=== PATIENT | female | born 1965 | race Caucasian/White ===

== ENCOUNTER 2016-06-15 18:35 | Emergency (ER) | payer OTHER ==
[~2016-06-15] VITALS: Ht 167.6 cm; Wt 71.1 kg
[~2016-06-15 18:35] MED LIST: FLEXERIL10 MG PO; MOTRIN800 MG PO
[2016-06-15 20:08] LABS: HEMATOCRIT 41.6 % (36.0-46.0); MCH 30.8 PG (29.0-34.0); MCHC 34.9 G/DL (30.0-36.0); MCV 88.3 FL (83-99); MEAN PLAT.VOLUME 9.7 uM^3 (9.5-12.4); PLATELET COUNT 291 K/uL (156-360); RBC DIS.WIDTH-CV 13.8 % (11.8-14.6); RBC DIS.WIDTH-SD 44.4 % (39-53); RED BLOOD COUNT 4.71 M/uL (3.80-5.20); WHITE BLOOD COUNT 10.8 K/uL (4.1-10.2)
[2016-06-15 20:21] LABS: CHLORIDE 106 mEq/L (99-109); POTASSIUM 4.3 mEq/L (3.7-5.4); SODIUM 140 mEq/L (136-147)
[2016-06-15 20:22] LABS: GLUCOSE 103 mg/dL (70-99)
[2016-06-15 20:24] LABS: ANION GAP 8 MEQ/L (2-14)
[2016-06-15 20:26] LABS: GFR ESTIMATE (CALCULATED) > 59 mL/min/
[2016-06-15 20:27] LABS: UREA NITROGEN (BUN) 7 mg/dL (9-23)
[2016-06-15 20:29] LABS: TROP-I INTERPRETATION NEGATIVE; TROPONIN-I < 0.01 ng/mL (0.0-0.30)
[2016-06-15] MEDS ORDERED: ATARAX,VISTARIL50 MG PO (20:34)
[2016-06-15] MEDS ORDERED: AUGMENTIN875 MG PO (20:34)
[2016-06-15] MEDS ORDERED: AFRIN,GENASAL D15 ML BOTH NARES (20:34)
[2016-06-15 21:08] VITALS: BP 162/93
== END 2016-06-15 21:10 | disposition home or self-care (01) ==
LOC: RME 18:35 → EME 18:35 → RME 21:10
DX: R51 Headache (principal); R42 Dizziness and giddiness; F17.200 Nicotine dependence, unspecified, uncomplicated
CPT/HCPCS: 70450; 71020; 80048; 84484; 85027; 93005; 99281; 99284; J1885; Q0177

== ENCOUNTER 2016-08-17 13:43 | Emergency (ER) | payer OTHER ==
[~2016-08-17] VITALS: Ht 167.6 cm; Wt 68.5 kg
[~2016-08-17 13:43] MED LIST changes: +AFRIN,GENASAL D15 ML BOTH NARES; +ATARAX,VISTARIL50 MG PO; +AUGMENTIN875 MG PO
[2016-08-17] MEDS ORDERED: ELIMITE 5% CREA60 GM TP (15:06)
[2016-08-17 15:23] VITALS: BP 133/89
[2016-08-17] MEDS ORDERED: KEFLEX500 MG PO (15:25)
[2016-08-17] MEDS ORDERED: ALLEGRA ALLERG180 MG PO (15:26)
[2016-08-17] MEDS ORDERED: GRALISE300 MG PO (15:26)
[2016-08-17] MEDS ORDERED: ZOLOFT50 MG PO (15:27)
[2016-08-17] MEDS ORDERED: TRAMADOL HCL50 MG PO (15:27)
[2016-08-17] MEDS ORDERED: TIZANIDINE HCL4 M1 PO (15:28)
== END 2016-08-17 15:24 | disposition home or self-care (01) ==
LOC: EME 13:43
DX: S40.861A Insect bite (nonvenomous) of right upper arm, initial encounter (principal); S40.862A Insect bite (nonvenomous) of left upper arm, initial encounter; W57.XXXA Bitten or stung by nonvenomous insect and other nonvenomous arthropods, initial encounter
CPT/HCPCS: 99281; 99284

== ENCOUNTER 2016-11-23 20:33 | Emergency (ER) | payer OTHER ==
[~2016-11-23] VITALS: Ht 167.6 cm; Wt 70.3 kg
[~2016-11-23 20:33] MED LIST changes: +ALLEGRA ALLERG180 MG PO; +ELIMITE 5% CREA60 GM TP; +GRALISE300 MG PO; +KEFLEX500 MG PO; +TIZANIDINE HCL4 M1 PO; +TRAMADOL HCL50 MG PO; +ZOLOFT50 MG PO
[2016-11-23 21:05] LABS: HEMATOCRIT 42.1 % (36.0-46.0); MCH 29.7 PG (29.0-34.0); MCHC 33.5 G/DL (30.0-36.0); MCV 88.6 FL (83-99); MEAN PLAT.VOLUME 9.7 uM^3 (9.5-12.4); PLATELET COUNT 309 K/uL (156-360); RBC DIS.WIDTH-CV 13.9 % (11.8-14.6); RBC DIS.WIDTH-SD 44.9 % (39-53); RED BLOOD COUNT 4.75 M/uL (3.80-5.20); WHITE BLOOD COUNT 14.6 K/uL (4.1-10.2)
[2016-11-23 21:21] LABS: CHLORIDE 106 mEq/L (99-109); POTASSIUM 3.9 mEq/L (3.7-5.4); SODIUM 141 mEq/L (136-147)
[2016-11-23 21:23] LABS: GLUCOSE 146 mg/dL (70-99)
[2016-11-23 21:24] LABS: ANION GAP 12 MEQ/L (2-14)
[2016-11-23 21:25] LABS: TOTAL BILIRUBIN 0.3 mg/dL (0.0-1.0)
[2016-11-23 21:27] LABS: ALKALINE PHOSPHATASE 112 IU/L (3-129); GFR ESTIMATE (CALCULATED) > 59 mL/min/
[2016-11-23 21:28] LABS: UREA NITROGEN (BUN) 12 mg/dL (9-23)
[2016-11-23 21:30] LABS: LIPASE 7 U/L (1.0-51.0)
[2016-11-23 22:49] LABS: ADD MIUA? YES; BILIRUBIN NEGATIVE; BLOOD SMALL; COLOR YELLOW ((YELLOW)); GLUCOSE (STRIP) NEGATIVE; KETONES NEGATIVE; LEUKOCYTES NEGATIVE; NITRITE NEGATIVE; PROTEIN (STRIP) 100; SPECIFIC GRAVITY 1.018 (1.000-1.030); UROBILINOGEN 0.2 MG/DL (0.2-1.0)
[2016-11-23 23:26] LABS: EPITHELIAL CELLS 1+ /HPF; RED BLOOD CELLS 0-5 /HPF (0-5); WHITE BLOOD CELLS NONE SEEN /HPF (0-5)
[2016-11-23 23:27] LABS: AMORPHOUS URATES CRYSTALS 2+; BACTERIA 2+ /HPF; CRYSTALS PRESENT; MUCUS 3+ /LPF; UCUL ADDED? NO
[2016-11-24 00:45] LABS: EOSINOPHIL (%) 0 % (0-5); IMMATURE GRANULOCYTE (%) 0.7 % (0.0-0.7); IMMATURE GRANULOCYTE COUNT 0.1 K/uL; INSTRUMENT ABS NEUTROPHIL CT 12.9 K/uL; LYMPHOCYTE COUNT 1.4 K/uL (1.0-2.8); MONOCYTE (%) 4.3 % (3-12); MONOCYTE COUNT 0.6 K/uL (0-0.8); NEUTROPHIL (%) 85.7 % (45-76); NEUTROPHIL COUNT 12.9 K/uL (1.8-6.4)
[2016-11-24] MEDS ORDERED: BENTYL20 MG PO (01:46)
[2016-11-24] MEDS ORDERED: REGLAN10 MG PO (01:46)
[2016-11-24 02:46] VITALS: BP 116/77
== END 2016-11-24 03:00 | disposition home or self-care (01) ==
LOC: EME 20:33
PROVIDERS: Emergency Medicine
DX: K52.9 Noninfective gastroenteritis and colitis, unspecified (principal); Z90.721 Acquired absence of ovaries, unilateral; F17.200 Nicotine dependence, unspecified, uncomplicated
CPT/HCPCS: 74177; 80053; 81003; 83605; 83690; 85025; 85027; 87493; 99281; 99284; J0500; J2405; J7030